=== PATIENT | male | born 1965 | race African-American/Black ===

== ENCOUNTER 2016-08-01 17:57 | Emergency (ER) | payer OTHER ==
[~2016-08-01] VITALS: Ht 160 cm; Wt 81.6 kg
[~2016-08-01 17:57] MED LIST: AUGMENTIN 875 M1 TAB PO; FLEXERIL10 MG PO; LISINOPRIL10 M1 PO; TRAMADOL50 MG PO; TYLENOL #4 3001 TAB PO
[2016-08-01 18:03] VITALS: BP 132/94
--- NOTE | 2016-08-01 19:12 | ED INFLUENZA/URI COMPLAINT ---
History of Present Illness General Chief Complaint: General Adult Stated Complaint: PT HAS BODY ACHES AND HOT AND COLD ? FLU Source: patient Exam Limitations: no limitations Vital Signs & Intake/Output Vital Signs & Intake/Output Vital Signs Date Time Temp Pulse Resp B/P Pulse O2 O2 Flow FiO2 Ox Delivery Rate 08/01 1803 99.8 92 18 132/94 98 Room Air Allergies Coded Allergies: aspirin (From Percodan) (Intermediate, RASH 08/01/16) oxycodone (From Percodan) (Intermediate, RASH 08/01/16) Reconcile Medications Ibuprofen (Advil) 200 MG CAPSULE 2 CAP PO PRN PAIN (Reported) Lisinopril 10 MG TABLET 1 TAB PO BID HIGH BLOOD PRESSURE (Reported) Triage Note: 51 YO MALE TO TRIAGE C/O PRODUCTIVE COUGH WITH YELLOW SPUTUM AND CILLS SINCE . STATES FEVERS ON/OFF. TEMP 99.2 IN TRIAGE. PT C/O SORE TROAT. Triage Nurses Notes Reviewed? yes HPI: 51-year-old male arrived to triage the counts include 234 beds at the [facility] for evaluation of body aches, fever and sore throat since . He reports he has been taking Tylenol and Motrin with no relief. He denies any chest pain, shortness of breath, lightheadedness, dizziness or palpitations. He denies any ear pain, nasal congestion, cough. He reports he does smoke but no other significant past medical history. He denies any recent illness or being around anybody that's been sick. Past History Travel History Traveled to [place] past 21 day No Medical History Any Pertinent Medical History? 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 No Review of Systems Review of Systems Constitutional: Reports: chills, fever, weakness. EENTM: Reports: throat pain. Respiratory: Denies: no symptoms. Cardiovascular: Denies: no symptoms. GI: Denies: no symptoms. Genitourinary: Denies: no symptoms. Musculoskeletal: Reports: muscle pain. Skin: Denies: no symptoms. Neurological/Psychological: Denies: no symptoms. Hematologic/Endocrine: Denies: no symptoms. Immunologic/Allergic: Denies: no symptoms. Physical Exam Physical Exam General Appearance: well developed/nourished, alert, awake, mild distress Head: atraumatic, normal appearance Eyes: Bilateral: normal appearance, PERRL, EOMI. Ears, Nose, Throat: pharyngeal erythema Neck: normal inspection, supple, full range of motion Respiratory: normal breath sounds, chest non-tender, no respiratory distress Cardiovascular: regular rate/rhythm Gastrointestinal: normal bowel sounds, soft, non-tender Back: normal inspection, normal range of motion Extremities: normal inspection, normal capillary refill, normal range of motion, no edema Neurologic/Psych: no motor/sensory deficits, awake, alert, oriented x 3, normal gait, normal mood/affect Skin: intact, normal color, warm/dry Core Measures Severe Sepsis Present: No Septic Shock Present: No Progress Differential Diagnosis: influenza, strep, viral syndrome Plan of Care: Orders Procedure Date/time Status RAPID VIRAL INFLUENZA A 08/01 1908 Complete THROAT CULTURE W/QUICK STREP 08/01 1804 Active Initial ED EKG: none Comments: Strep and influenza negative. Motrin helped with the body aches and he is feeling better he will be discharged home to follow up with his primary care provider this week. He will do treatment for his symptoms, Tylenol and/or Motrin, salt water gargles. Departure Departure Time of Disposition: 2046 Disposition: HOME OR SELF CARE Condition: Stable Clinical Impression Primary Impression: Pharyngitis Qualifiers: Pharyngitis/tonsillitis etiology: unspecified etiology Qualified Code: J02.9 - Acute pharyngitis, unspecified Secondary Impressions: Body aches Referrals: CHRISTI POSEY MD (PCP/Family) Additional Instructions: Tylenol and/or Motrin has needed for pain and fever. Salt water gargles as needed for sore throat. Please follow-up with Dr. Posey this week. Departure Forms: Customer Survey General Discharge Information
[2016-08-01] MEDS ORDERED: ADVIL200 M1 PO (20:11)
== END 2016-08-01 20:58 ==
LOC: ERH 17:57
DX: J02.9 Acute pharyngitis, unspecified (principal); R53.81 Other malaise; F17.210 Nicotine dependence, cigarettes, uncomplicated
CPT/HCPCS: 87804; 87804-59

== ENCOUNTER 2016-10-07 09:28 | Emergency (ER) | payer OTHER ==
[~2016-10-07] VITALS: Ht 160 cm; Wt 81.6 kg
[~2016-10-07 09:28] MED LIST changes: +ADVIL200 M1 PO
[2016-10-07 09:34] VITALS: BP 163/119
--- NOTE | 2016-10-07 09:39 | ED NECK/BACK PAIN COMPLAINT ---
History of Present Illness General Chief Complaint: Low Back Pain/Injury Stated Complaint: RT SHOULDER PAIN/RT HIP PAIN/BACK PAIN Source: patient, old records Exam Limitations: no limitations Vital Signs & Intake/Output Vital Signs & Intake/Output Vital Signs Date Time Temp Pulse Resp B/P B/P Pulse O2 O2 Flow FiO2 Mean Ox Delivery Rate 10/07 0934 96.7 94 18 163/119 100 Room Air Allergies Coded Allergies: aspirin (From Percodan) (Intermediate, RASH 08/01/16) oxycodone (From Percodan) (Intermediate, RASH 08/01/16) Reconcile Medications Cyclobenzaprine HCl 10 MG TABLET 1 TAB PO Q8P PAIN OR SPASM Ibuprofen (Advil) 200 MG CAPSULE 2 CAP PO PRN PAIN (Reported) Lisinopril 10 MG TABLET 1 TAB PO BID HIGH BLOOD PRESSURE (Reported) Tramadol HCl 50 MG TABLET 1 TAB PO Q6P PRN PAIN Triage Note: C/O R SHOULDER, R LOWER BACK AND R HIP PAIN, X 1 WEEK. OCCURRED WHILE USING A TOÑO AT WORK, STATES HE WAS SUPPOSED TO HAVE DISC SURGERY IN 2010 FOR INJURY TO SAME SHOULDER, BUT WAS UNABLE TO. PAIN IS WORSE ON INPSIRATION. Triage Nurses Notes Reviewed? yes HPI: Patient was at work using a poorly when it suddenly let go and he had some onset of pain to his right hip, his neck on the right side. The pain in his neck radiates to his right shoulder. Pain increases with movement. This occurred 1 week ago. Patient is currently on light duty but the pain is getting worse. Currently the pain is 10 out of 10. There is no weakness or numbness. The pain is exacerbated with movement and decreases when he stays still. There are no fevers or chills. The pain is aching throbbing burning and sharp in nature. Past History Travel History Traveled to [place] past 21 day No Medical History Any Pertinent Medical History? 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 No Review of Systems Review of Systems Constitutional: Reports: no symptoms. Ears, Nose, Throat, Mouth: Reports: no symptoms. Respiratory: Reports: no symptoms. Cardiovascular: Reports: no symptoms. Musculoskeletal: Reports: see HPI, back pain, neck pain. Neurological/Psychological: Reports: no symptoms. Physical Exam Physical Exam General Appearance: well developed/nourished, alert, awake, moderate distress Head: atraumatic, normal appearance Eyes: Bilateral: PERRL, EOMI. Ears, Nose, Throat, Mouth: hearing grossly normal, moist mucous membrane Neck: normal inspection, supple, full range of motion, muscle spasm, tender lateral Respiratory: normal breath sounds, chest non-tender, no respiratory distress, lungs clear Cardiovascular: regular rate/rhythm, normal peripheral pulses Back: muscle spasm Extremities: non-tender, normal range of motion Neurologic/Psych: no motor/sensory deficits, awake, alert, oriented x 3, normal gait, normal mood/affect Progress Differential Diagnosis: C spine injury, herniated disc, myofascial strain Plan of Care: muscle relants, pain control, occ med follow up Departure Departure Disposition: HOME OR SELF CARE Condition: Stable Clinical Impression Primary Impression: Back pain Secondary Impressions: Cervical radiculopathy Referrals: FORMAN CHRISTI FERNÁNDEZ (PCP/Family) Additional Instructions: FOLLOW UP WITH OCCUPATION MEDICINE TAKE MEDS NEEDED USE MOIST HEAT Departure Forms: Customer Survey General Discharge Information Prescriptions: Current Visit Scripts Tramadol HCl 1 TAB PO Q6P PRN PAIN #20 TAB Cyclobenzaprine HCl 1 TAB PO Q8P #20 TAB
[2016-10-07] MEDS ORDERED: CYCLOBENZAPRINE10 M1 PO (09:59)
[2016-10-07] MEDS ORDERED: TRAMADOL HCL50 M1 PO (09:59)
== END 2016-10-07 10:04 ==
LOC: ERH 09:28
DX: M54.12 Radiculopathy, cervical region (principal)

== ENCOUNTER 2016-11-19 13:05 | Emergency (ER) | payer OTHER ==
[~2016-11-19] VITALS: Ht 160 cm; Wt 81.6 kg
[~2016-11-19 13:05] MED LIST changes: +CYCLOBENZAPRINE10 M1 PO; +TRAMADOL HCL50 M1 PO
[2016-11-19 15:07] LABS: ABSOLUTE BASOPHIL COUNT 0.1 /CUMM (0.0-0.2); ABSOLUTE EOSINOPHIL COUNT 0.3 /CUMM (0.0-0.7); ABSOLUTE GRANULOCYTE CT 4.2 /CUMM (1.4-6.5); ABSOLUTE LYMPH COUNT 3.5 /CUMM (1.2-3.4); ABSOLUTE MONOCYTE COUNT 0.6 /CUMM (0.10-0.60); EOSINOPHIL % 3.5 % (0-5); GRANULOCYTE % 48.3 % (42.2-75.2); HEMATOCRIT 44.1 % (42-52); MEAN CORPUSCULAR HGB CONC 33.9 G/DL (33.0-37.0); MEAN CORPUSCULAR VOLUME 91.4 FL (80.0-94.0); MEAN PLATELET VOLUME 8.5 FL (7.4-10.4); PLATELET COUNT 243 /CUMM (130-400); RED BLOOD CELL CT 4.82 /CUMM (4.70-6.10); WHITE BLOOD CELL COUNT 8.8 /CUMM (4.8-10.8)
--- NOTE | 2016-11-19 15:56 | ED CARDIAC/CP/PALPITATIONS ---
History of Present Illness General Chief Complaint: General Adult Stated Complaint: HIGH BP Source: patient Exam Limitations: no limitations Vital Signs & Intake/Output Vital Signs & Intake/Output Vital Signs Date Time Temp Pulse Resp B/P B/P Pulse O2 O2 Flow FiO2 Mean Ox Delivery Rate 11/19 2036 98.7 82 16 138/90 97 Room Air 11/19 1836 98.7 80 15 135/92 98 Room Air Room Air 11/19 1550 Room Air Room Air 11/19 1550 98.0 85 15 146/92 98 Room Air Room Air 11/19 1308 96.6 106 16 136/92 97 Room Air Allergies Coded Allergies: aspirin (From Percodan) (Intermediate, RASH, GI UPSET 11/19/16) oxycodone (From Percodan) (Intermediate, RASH 08/01/16) Reconcile Medications Lisinopril 10 MG TABLET 1 TAB PO BID HIGH BLOOD PRESSURE (Reported) Lisinopril 10 MG TABLET 1 TAB PO DAILY BLOOD PRESSURE Meclizine HCl 25 MG TABLET 1 TAB PO TIDPRN PRN VERTIGO Scopolamine Hydrobromide (Transderm-Scop) 1.5MG/3DAY PATCH.TD.3 1 PAT TOP Q3D VERTIGO apply to the hairless area behind 1 ear at least 4 hours before effect is required; reapply every 3 days as needed Triage Note: 51 Y/O MALE C/O "TINGLING" IN L ARM, BACK PAIN, "MY FEET ARE HURTING" AND HYPERTENSION. STATES HE HAD SYMPTOMS YESTERDAY BUT DID NOT GET EVALUATED AT THAT TIME. TOOK B/P AT WORK TODAY AND IT WAS 180'S SYSTOLIC. STATES HE USED TO BE ON B/P MEDS BUT HE STOPPED DUE TO HEARING THAT SOME PEOPLE CAN HAVE LIP SWELLING WITH LISINOPRIL; STATES HIS DOCTOR STILL WANTS HIM TO BE ON MEDS BUT HE IS NOT CURRENTLY. PT DENIES C/P. PT STATES HE FEELS "REAL DIZZY IF I MOVE MY HEAD". B/P Triage Nurses Notes Reviewed? yes Onset: Abrupt Duration: intermittent Timing: recent history Quality/Severity: moderate Radiation: no radiation HPI: patient is a 51-year-old male with a past medical history of hypertension noncompliant with lisinopril who presents emergency room with concerns of a chronic history of dyspnea on exertion or patient is an every day smoker however patient presents with concerns of a 24-hour history of room spinning sensation made worse with head movements and body positioning. Patient feels nauseous during episodes. Patient also admits to a intermittent episodes of bright red blood after bowel movements. Patient denies any fever chills chest pain on pain jaw pain vomiting abdominal pain (ABILIO GRIDER) Past History Travel History Traveled to [place] past 21 day No Medical History Any Pertinent Medical History? 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 No (ABILIO GRIDER) Review of Systems Review of Systems Constitutional: Reports: see HPI. Denies: chills, fever. EENTM: Reports: no symptoms. Respiratory: Reports: see HPI, short of breath. Cardiovascular: Reports: see HPI. Denies: peripheral edema. GI: Reports: see HPI. Denies: abdominal pain. Genitourinary: Reports: no symptoms. Musculoskeletal: Reports: no symptoms. Skin: Reports: no symptoms. Neurological/Psychological: Reports: no symptoms. Hematologic/Endocrine: Reports: no symptoms. Immunologic/Allergic: Reports: no symptoms. All Other Systems: Reviewed and Negative (ABILIO GRIDER) Physical Exam Physical Exam General Appearance: well developed/nourished, no apparent distress, alert, awake Cardiovascular: regular rate/rhythm Rectal: normal exam, normal rectal tone, heme negative stool Comments: Well-developed well-nourished person in no acute distress HEENT: Normal EENT exam, extraocular motion intact, no nystagmus. Pupils equally round and reactive to light and accommodation. Nose is atraumatic. External auditory canal and Tympanic membranes clear. Pharynx normal. No swelling or edema. Neck: Supple, no lymphadenopathy, normal range of motion without pain or tenderness Back: Nontender, no CVA tenderness. Cardiovascular: Regular rate and rhythms no murmurs rubs or gallops, normal JVP Respiratory: Chest nontender. No respiratory distress.breath sounds clear to auscultation bilaterally Abdomen: Soft, nontender nondistended, no appreciable organomegaly. Normal bowel sounds. No ascites Extremity: No edema, no calf tenderness to palpation, normal and equal pulses. Neuro: Alert oriented x3, motor sensory normal, cranial nerves II through XII grossly intact. Modify Miller-Hallpike reproduced room spinning sensation Skin: No appreciable rash on exposed skin, skin is warm and dry. Psych: Mood and affect is normal, memory and judgment is normal. Core Measures ACS in differential dx? Yes Severe Sepsis Present: No Septic Shock Present: No (RENALDO DUFFY,ABILIO) Progress Differential Diagnosis: AMI, aortic dissection, atrial fibrillation, cholecystitis, CHF/pulm edema, costochondritis, hyperkalemia, hypovolemia, hyperthyroid, hyperventilation, intracranial hemorrhage, musculoskeletal pain, myocarditis, pancreatitis, pericarditis, pneumonia, pneumothorax, PSVT, pulmonary embolism, PUD/GERD, PVCs/PACs, respiratory failure, rib fracture, sepsis, unstable angina, V-fib/V-Tach, WPW syndrome Plan of Care: Orders Procedure Date/time Status Heart Healthy Diet 11/20 B Active TROPONIN LEVEL 11/19 1855 Complete EKG 11/19 1855 Active MISTAKE 11/19 1601 Active Add-on Test (ER Only) 11/19 1554 Active TROPONIN LEVEL 11/19 1458 Complete COMPREHENSIVE METABOLIC PANEL 11/19 1436 Complete CBC WITHOUT DIFFERENTIAL 11/19 1436 Complete EKG 11/19 1312 Active Laboratory Tests 11/19/16 1923: Troponin I < 0.01 11/19/16 1458: Anion Gap 12, Estimated GFR > 60, BUN/Creatinine Ratio 17.1, Glucose 89, Calcium 10.2, Total Bilirubin 0.5, AST 73 H, ALT 128 H, Alkaline Phosphatase 69, Troponin I < 0.01, Total Protein 8.5 H, Albumin 4.9, Globulin 3.6, Albumin/ Globulin Ratio 1.4, CBC w Diff NO MAN DIFF REQ, RBC 4.82, MCV 91.4, MCH 31.0, RDW 13.0, MPV 8.5, Gran % 48.3, Lymphocytes % 40.3, Monocytes % 6.9, Eosinophils % 3.5, Basophils % 1.0, Absolute Granulocytes 4.2, Absolute Lymphocytes 3.5 H, Absolute Monocytes 0.6, Absolute Eosinophils 0.3, Absolute Basophils 0.1, PUBS MCHC 33.9 Patient on initial examination was in no apparent distress resting comfortably at bedside. Patient due to history of present is has concerns of vertigo symptoms positional related Patient had negative orthostatics EKG and blood work initially was unremarkable Patient received second EKG showed a 1 PVC and which patient has been on telemetry and there was no notable persistent PVCs. Patient was ambulated and had no symptoms no dizziness and the vertigo has now ceased. Patient was strongly advised to follow up with director of career services and matrix worker for his presenting complaints. Patient's second cardiac enzyme was unremarkable. Upon discharge patient looks well no apparent distress and will comply with discharge instructions and had no questions. (RENALDO DUFFY,ABILIO) Diagnostic Imaging: Viewed by Me: Radiology Read. Radiology Impression: no acute abnormality, no fracture Initial ED EKG: SINUS RHYTHM NOTED AT 88 BPM Repeat EKG: changed (TIMES ONE pvc 76 BPM SINUS RHY) Comments: PATIENT: NOAH OLSEN PRESENT AGE: 51 PATIENT ACCOUNT NO: [id number] : 65 LOCATION: ER ORDERING PHYSICIAN: ABILIO DUFFY SERVICE DATE: 11/19/16 EXAM TYPE: CAT - CT HEAD WO IV CONTRAST EXAMINATION: CT HEAD WITHOUT CONTRAST CLINICAL INFORMATION: Dizziness. Headache. COMPARISON: None TECHNIQUE: Contiguous axial imaging was performed from the skull base to vertex without intravenous administration of contrast. DLP: 617.3 mGy-cm FINDINGS: There is no evidence of acute intracranial hemorrhage or territorial infarction. No abnormal mass effect or midline shift is seen. Scott to white matter differentiation is well preserved. No extra-axial fluid collections are identified. The ventricles are normal in size. There is no abnormal attenuation within the brain parenchyma. The osseous structures and soft tissues are normal. The mastoid air cells and visualized portions of the paranasal sinuses are well aerated. IMPRESSION: No acute intracranial pathology. DICTATED BY: JENNIFER YAN MD DATE/TIME DICTATED:11/19/161632 MERCHANDISING TEAM LEAD:PAYTON DATE/TIME TRANSCRIBED:11/19/16 PATIENT: NOAH OLSEN PRESENT AGE: 51 PATIENT ACCOUNT NO: [id number] : 65 LOCATION: [facility] ORDERING PHYSICIAN: ABILIO DUFFY SERVICE DATE: 11/19/16 EXAM TYPE: RAD - XRY-CHEST XRAY, PA AND LATERAL EXAMINATION: XR CHEST CLINICAL INFORMATION: Shortness of breath COMPARISON: Chest x-ray 07/27/2014. TECHNIQUE: 2 views of the chest were obtained. FINDINGS: No significant abnormality is noted involving the heart, lungs, mediastinum, bony thorax or soft tissues. IMPRESSION: Unremarkable examination. DICTATED BY: LIU ESPINO MD DATE/TIME DICTATED:11/19/16 (ABILIO GRIDER) Departure Departure Disposition: HOME OR SELF CARE Condition: Stable Clinical Impression Primary Impression: Positional vertigo Secondary Impressions: Dizziness, Hypertension, Rectal bleed Referrals: ZOLTAN FERNÁNDEZ,MANUEL KOROMA MD,LAMINE LYMAN MD,Leighton FORMAN MD,CHRISTI Louis (PCP/Family) Additional Instructions: As discussed begin the prescription of meclizine and scopolamine for your room spinning sensation. Begin a prescription of lisinopril for blood pressure. prescription is waiting a [facility] pharmacy. Tomorrow please follow up and establish a matrix worker Dr. Miller, ENT Dr. Gaitan and director of career services Dr. Lyman for your symptoms. If symptoms worsen return to emergency room please discontinue smoking Departure Forms: Customer Survey General Discharge Information Prescriptions: Current Visit Scripts Lisinopril 1 TAB PO DAILY #30 TAB Meclizine HCl 1 TAB PO TIDPRN PRN VERTIGO #20 TAB Scopolamine Hydrobromide (Transderm-Scop) 1 PAT TOP Q3D #4 PAT apply to the hairless area behind 1 ear at least 4 hours before effect is required; reapply every 3 days as needed (ABILIO GRIDER) PA/SERVICE CREW LEADER Co-Sign Statement Statement: ED Attending supervision documentation- [] I saw and evaluated the patient. I have also reviewed all the pertinent lab results and diagnostic results. I agree with the findings and the plan of care as documented in the PA's/SERVICE CREW LEADER's documentation. [X] I have reviewed the ED Record and agree with the PA's/SERVICE CREW LEADER's documentation. [] Additions or exceptions (if any) to the PAs/SERVICE CREW LEADER's note and plan are summarized below: [] (ELLIOT VELASQUEZ DO) Critical Care Note Critical Care Note Critical Care Time: non-applicable (ABILIO GRIDER)
--- NOTE | 2016-11-19 16:38 | RADIOLOGY REPORT ---
EXAMINATION: XR CHEST CLINICAL INFORMATION: Shortness of breath COMPARISON: Chest x-ray 07/27/2014. TECHNIQUE: 2 views of the chest were obtained. FINDINGS: No significant abnormality is noted involving the heart, lungs, mediastinum, bony thorax or soft tissues. IMPRESSION: Unremarkable examination.
--- NOTE | 2016-11-19 16:40 | CT SCAN REPORT ---
EXAMINATION: CT HEAD WITHOUT CONTRAST CLINICAL INFORMATION: Dizziness. Headache. COMPARISON: None TECHNIQUE: Contiguous axial imaging was performed from the skull base to vertex without intravenous administration of contrast. DLP: 617.3 mGy-cm FINDINGS: There is no evidence of acute intracranial hemorrhage or territorial infarction. No abnormal mass effect or midline shift is seen. Scott to white matter differentiation is well preserved. No extra-axial fluid collections are identified. The ventricles are normal in size. There is no abnormal attenuation within the brain parenchyma. The osseous structures and soft tissues are normal. The mastoid air cells and visualized portions of the paranasal sinuses are well aerated. IMPRESSION: No acute intracranial pathology.
[2016-11-19] MEDS ORDERED: LISINOPRIL10 M1 PO (20:25)
[2016-11-19] MEDS ORDERED: TRANSDERM-SCOP1 EACH TOP (20:25)
[2016-11-19] MEDS ORDERED: MECLIZINE HCL25 MG PO (20:25)
[2016-11-19 20:37] VITALS: BP 138/90
== END 2016-11-19 20:39 ==
LOC: ERH 13:05
PROVIDERS: Emergency Medicine
DX: R42 Dizziness and giddiness (principal); K62.5 Hemorrhage of anus and rectum; I10 Essential (primary) hypertension
CPT/HCPCS: 93005; 93010

== ENCOUNTER 2017-07-24 16:11 | Emergency (ER) | payer OTHER ==
[~2017-07-24] VITALS: Ht 160 cm; Wt 72.6 kg
[~2017-07-24 16:11] MED LIST changes: +IBUPROFEN600 M1 PO; +IBUPROFEN800 M1 PO; +MECLIZINE HCL25 MG PO; +NORCO 5-325 TA1 EACH PO; +ROBAXIN-750750 M1 PO; +TRANSDERM-SCOP1 EACH TOP
--- NOTE | 2017-07-24 18:59 | ED NECK/BACK PAIN COMPLAINT ---
History of Present Illness General Chief Complaint: Low Back Pain/Injury Stated Complaint: BACK PAIN Source: patient, family, old records Exam Limitations: no limitations Vital Signs & Intake/Output Vital Signs & Intake/Output Vital Signs Date Time Temp Pulse Resp B/P B/P Pulse O2 O2 Flow FiO2 Mean Ox Delivery Rate 07/24 1927 98.8 91 20 159/111 98 Room Air 07/24 1614 97.1 68 18 172/86 95 Room Air Allergies Coded Allergies: aspirin (From Percodan) (Intermediate, RASH, GI UPSET 11/19/16) oxycodone (From Percodan) (Intermediate, RASH 08/01/16) Reconcile Medications Cyclobenzaprine HCl 10 MG TABLET 1 TAB PO QPM BACK Cyclobenzaprine HCl 10 MG TABLET 1 TAB PO BID PRN SPASM DO NOT DRIVE WITH THIS MEDICATION Hydrocodone/Acetaminophen ([place] 5-325 Tablet) 5 MG-325 MG TABLET 1-2 TAB PO Q4-6 PRN PRN PAIN Ibuprofen 800 MG TABLET 1 TAB PO TID PRN PAIN Ibuprofen 600 MG TABLET 1 TAB PO Q6 PRN PAIN with food Lisinopril 10 MG TABLET 1 TAB PO BID HIGH BLOOD PRESSURE (Reported) Lisinopril 10 MG TABLET 1 TAB PO DAILY BLOOD PRESSURE Meclizine HCl 25 MG TABLET 1 TAB PO TIDPRN PRN VERTIGO Methocarbamol (Robaxin-750) 750 MG TABLET 1 TAB PO TID PRN PAIN Naproxen 500 MG TABLET 1 TAB PO BID BACK Oxycodone HCl/Acetaminophen (Oxycodone-Acetaminophen 5-325) 5 MG-325 MG TABLET 1 TAB PO DAILY PRN BACK Scopolamine Hydrobromide (Transderm-Scop) 1.5MG/3DAY PATCH.TD.3 1 PAT TOP Q3D VERTIGO apply to the hairless area behind 1 ear at least 4 hours before effect is required; reapply every 3 days as needed Triage Note: PT STATES THAT HE WAS SEEN HERE FOR LOW BACK PAIN 2 WEEKS AGO, WAS SENT HOME ON WAS TAKING NORCO, WHICH HE RAN OUT OF, HAS NOT BEEN TAKING THE MOTRIN OR ROBAXIN DUE TO IT BOTHERS HIS STOMACH , HAS AN APPOINTMENT ON 07/31 WITH [facility]OPEDIC. WAS TOLD TO RETURN TO ER IF PAIN WORSE Triage Nurses Notes Reviewed? yes HPI: 52M PMH chronic lower back pain, nephrolithiasis presents with acute on chronic lower back pain. Pain has been worsening for the past few months. He is having difficulty sleeping due to the bridgett. There are no new neurological symptoms, and he denies lower extremity weaknes/numbness/paresthesia, or incontinence or retention. No evidence of neurological deficit. Past History Travel History Traveled to [place] past 21 day No Medical History Any Pertinent Medical History? see below for history Neurological: NONE EENT: NONE Cardiovascular: hypertension Respiratory: NONE Gastrointestinal: NONE Hepatic: NONE Renal: NONE Musculoskeletal: disk herniation Psychiatric: NONE Endocrine: NONE Blood Disorders: NONE Cancer(s): NONE [employer]/Reproductive: NONE Surgical History Surgical History: hernia repair-inguinal, L CARPAL TUNNEL R/L INGUINAL HERNIA Psychosocial History What is your primary language Hebrew Tobacco Use: Never used ETOH Use: denies use Illicit Drug Use: denies illicit drug use Family History Hx Contributory? No Review of Systems Review of Systems Constitutional: Reports: no symptoms. Eyes: Reports: no symptoms. Ears, Nose, Throat, Mouth: Reports: no symptoms. Respiratory: Reports: no symptoms. Cardiovascular: Reports: no symptoms. Gastrointestinal/Abdominal: Reports: no symptoms. Musculoskeletal: Reports: no symptoms. Skin: Reports: no symptoms. Neurological/Psychological: Reports: no symptoms. All Other Systems: Reviewed and Negative Physical Exam Physical Exam General Appearance: well developed/nourished, mild distress Head: atraumatic Eyes: Bilateral: normal appearance. Ears, Nose, Throat, Mouth: hearing grossly normal Neck: normal inspection, supple, full range of motion Respiratory: normal breath sounds Cardiovascular: regular rate/rhythm Gastrointestinal: soft, non-tender Back: normal inspection Extremities: normal range of motion Straight Leg Raising: Right: Pain at ____ degrees. Left: Pain at ____ degrees. Sensory: Top of Foot: 2: L5R, L5L. Neurologic/Psych: no motor/sensory deficits, awake, alert, oriented x 3, normal mood/affect Skin: intact, normal color, warm/dry Core Measures CVA/TIA Diagnosis: No Progress Differential Diagnosis: AAA, aortic dissection, C spine injury, carotid dissection, cauda equina syn, herniated disc, myofascial strain, pyelo/UTI, sciatica, spinal cord inj, thoracic outlet syn, T/L spine injury, ureterolithiasis Plan of Care: Improved after medications. No evidence of cord compression or cauda equina. [facility]. Departure Departure Disposition: HOME OR SELF CARE Condition: Stable Clinical Impression Primary Impression: Sciatica Referrals: Posey MD,[place] (PCP/Family) Additional Instructions: Follow up with Dr. Araiza. Try to keep active and moving around. Prolonged lying will worsen your pain. Pain medications may make you sleepy, so don't drive or operate machinery. Use warm compresses for your back. Departure Forms: Customer Survey General Discharge Information Prescriptions: Current Visit Scripts Naproxen 1 TAB PO BID #30 TAB Cyclobenzaprine HCl 1 TAB PO QPM #30 TAB Oxycodone HCl/Acetaminophen (Oxycodone-Acetaminophen 5-325) 1 TAB PO DAILY PRN BACK #8 TAB
[2017-07-24 19:28] VITALS: BP 159/111
[2017-07-24] MEDS ORDERED: OXYCODONE-ACET1 EACH PO (20:11)
[2017-07-24] MEDS ORDERED: NAPROXEN500 M2 PO (20:11)
[2017-07-24] MEDS ORDERED: CYCLOBENZAPRINE10 M1 PO (20:11)
[2017-07-29] MEDS ORDERED: PERCOCET 5-3251 EACH PO (12:21)
== END 2017-07-24 20:26 ==
LOC: ERH 16:11
DX: M54.40 Lumbago with sciatica, unspecified side (principal)
CPT/HCPCS: 96372; J1885

== ENCOUNTER 2018-02-25 13:12 | Emergency (ER) | payer OTHER ==
[~2018-02-25] VITALS: Ht 160 cm; Wt 81.6 kg
[~2018-02-25 13:12] MED LIST changes: +NAPROXEN500 M2 PO; +OXYCODONE-ACET1 EACH PO; +PERCOCET 5-3251 EACH PO
[2018-02-25 15:58] LABS: ABSOLUTE EOSINOPHIL COUNT 0.3 /CUMM (0.0-0.7); ABSOLUTE LYMPH COUNT 3.5 /CUMM (1.2-3.4); BASOPHIL % 0.3 % (0.0-2.0); EOSINOPHIL % 3.5 % (0-5); HEMATOCRIT 45.9 % (42-52); MEAN CORPUSCULAR HGB CONC 33.7 G/DL (33.0-37.0); MEAN PLATELET VOLUME 8.4 FL (7.4-10.4); PLATELET COUNT 252 /CUMM (130-400); RBC DISTRIBUTION WIDTH 13.1 % (11.5-14.5); RED BLOOD CELL CT 5.02 /CUMM (4.70-6.10); WHITE BLOOD CELL COUNT 9.2 /CUMM (4.8-10.8)
[2018-02-25 16:00] LABS: ABSOLUTE GRANULOCYTE CT 4.7 /CUMM (1.4-6.5); ABSOLUTE MONOCYTE COUNT 0.7 /CUMM (0.10-0.60); MEAN CORPUSCULAR HGB 30.8 PG (27.0-31.0); MEAN CORPUSCULAR VOLUME 91.4 FL (80.0-94.0)
[2018-02-25 16:18] VITALS: BP 143/96
--- NOTE | 2018-02-25 17:17 | CT SCAN REPORT ---
EXAMINATION: CT ABDOMEN AND PELVIS WITHOUT CONTRAST CLINICAL INFORMATION: Lower back pain, radiating down legs. History of kidney stones. COMPARISON: CT of the abdomen and pelvis done on 07/12/2017. TECHNIQUE: Multidetector volumetric imaging was performed from the superior aspect of the liver through the pubic symphysis. Sagittal and coronal reformatted images were obtained on the technologist's workstation. DLP: 261.14 mGy-cm FINDINGS: LUNG BASES: The visualized lung bases are unremarkable. LIVER, GALLBLADDER, AND BILIARY TREE: 2 subcentimeter hepatic hypodensities are noted one each within the right and left lobe of the liver, unchanged since 07/12/2017, too small for accurate characterization, may represent hepatic cysts. The gallbladder is unremarkable with no evidence of radiopaque gallstones, gallbladder wall thickening, or obvious pericholecystic inflammatory changes. PANCREAS: Unremarkable. SPLEEN: Unremarkable. ADRENAL GLANDS: Unremarkable. KIDNEYS AND URETERS: The kidneys are normal in size, shape, and attenuation. No hydronephrosis, or hydroureter seen. No perinephric stranding. There is a 0.5 cm maximum dimension stable nonobstructing calculus identified within the inferior calyx of the left kidney. Both ureters are decompressed. BLADDER: Suboptimally distended. GASTROINTESTINAL TRACT: Colonic diverticulosis related changes are noted within the transverse colon and minimally within the sigmoid colon without any CT features of superimposed acute diverticulitis. The appendix is visualized within the right deep hemipelvis and is unremarkable. The small bowel loops are decompressed. The stomach is decompressed. ABDOMINAL WALL: No significant hernia is appreciated. LYMPH NODES: Normal. VASCULAR: Significant atherosclerotic disease is noted within the aorta and is branches without aneurysm formation, unchanged. ABDOMINAL WALL: Postsurgical changes of lower anterior abdominal, pelvic wall repair is noted, unchanged. PELVIC VISCERA: There is no pelvic mass present. There is no free fluid and/or free air present. OSSEOUS STRUCTURES: No suspicious lytic or sclerotic abnormalities. IMPRESSION: 1. Stable 0.5 cm nonobstructing left renal calculus. 2. 2 stable subcentimeter hepatic hypodensities are noted, unchanged since 07/12/2017. 3. No acute intra-abdominal and/or intrapelvic pathology.
[2018-02-25] MEDS ORDERED: MEDROL4 M2 PO (17:36)
[2018-02-25] MEDS ORDERED: ROBAXIN-750750 M1 PO (17:36)
[2018-02-25] MEDS ORDERED: TRAMADOL HCL50 M1 PO (17:36)
--- NOTE | 2018-02-25 17:37 | ED NECK/BACK PAIN COMPLAINT ---
History of Present Illness General Chief Complaint: Neck/Upper Back Pain/Injury Stated Complaint: SEVER BACK AND NECK PAIN Source: patient Exam Limitations: no limitations Vital Signs & Intake/Output Vital Signs & Intake/Output Vital Signs Date Time Temp Pulse Resp B/P B/P Pulse O2 O2 Flow FiO2 Mean Ox Delivery Rate 02/25 1618 97.6 76 18 143/96 99 Room Air 02/25 1346 83 22 144/96 Room Air Allergies Coded Allergies: aspirin (From Percodan) (Intermediate, RASH, GI UPSET 07/29/17) oxycodone (From Percodan) (Intermediate, RASH 07/29/17) Reconcile Medications Cyclobenzaprine HCl 10 MG TABLET 1 TAB PO QPM BACK Cyclobenzaprine HCl 10 MG TABLET 1 TAB PO BID PRN SPASM DO NOT DRIVE WITH THIS MEDICATION Hydrocodone/Acetaminophen ([place] 5-325 Tablet) 5 MG-325 MG TABLET 1-2 TAB PO Q4-6 PRN PRN PAIN Ibuprofen 800 MG TABLET 1 TAB PO TID PRN PAIN Ibuprofen 600 MG TABLET 1 TAB PO Q6 PRN PAIN with food Lisinopril 10 MG TABLET 1 TAB PO BID HIGH BLOOD PRESSURE (Reported) Lisinopril 10 MG TABLET 1 TAB PO DAILY BLOOD PRESSURE Meclizine HCl 25 MG TABLET 1 TAB PO TIDPRN PRN VERTIGO Methocarbamol (Robaxin-750) 750 MG TABLET 1 TAB PO TID PRN PAIN Methocarbamol (Robaxin-750) 750 MG TABLET 1 TAB PO TID PRN pain Methylprednisolone. (Medrol) 4 MG TAB.DS.PK 1 DP PO AD back pain 6 on day 1 then reduce by one tablet daily until gone Naproxen 500 MG TABLET 1 TAB PO BID BACK Oxycodone HCl/Acetaminophen (Oxycodone-Acetaminophen 5-325) 5 MG-325 MG TABLET 1 TAB PO DAILY PRN BACK Oxycodone HCl/Acetaminophen (Percocet 5-325 MG Tablet) 5 MG-325 MG TABLET 1 TAB PO BID back pain Scopolamine Hydrobromide (Transderm-Scop) 1.5MG/3DAY PATCH.TD.3 1 PAT TOP Q3D VERTIGO apply to the hairless area behind 1 ear at least 4 hours before effect is required; reapply every 3 days as needed Tramadol HCl 50 MG TABLET 1 TAB PO Q6P PRN pain Triage Note: C/O WORSENING BACK PAIN WITH INCONTINENCE SINCE YESTERDAY, ALSO C/O BILATERAL LEG NUMBNESS. SENT BY [employer]. Triage Nurses Notes Reviewed? yes Onset: Abrupt Duration: day(s): (2), constant, continues in ED, getting worse Timing: recent history Quality/Severity: moderate, sharpness Location: lumbar spine, paraspinous muscles Radiation: buttocks, upper legs Method of Injury: unknown Loss of Consciousness: no loss of consciousness Modifying Factors: movement HPI: 53-year-old male history of chronic back pain and hypertension presents for evaluation of worsening pain in his lower back. Patient reports symptoms started about 2 days ago and getting worse. The pain is located in both sides OF THE low back AND radiates down to the bilateral buttocks and bilateral upper legs. No numbness or tingling. NUMBNESS OR TINGLING. Patient reports he has had similar symptoms in the past. He notes that several weeks ago he has had some dribbling urine that occurs after he urinates. This is still ongoing today. No bowel dysfunction. It only happens after he urinates not randomly. He denies any fever or dysuria history of cancer abdominal pain hematuria fever IV drug use or any other associated symptoms. He has not taken any medicine for his pain. He reports a history of kidney stones and feels like this may be similar. He has taken tramadol in the past with good effect. (Dillan Gaston) Past History Travel History Traveled to [place] past 21 day No Medical History Any Pertinent Medical History? see below for history Neurological: NONE EENT: NONE Cardiovascular: hypertension Respiratory: NONE Gastrointestinal: NONE Hepatic: NONE Renal: NONE Musculoskeletal: disk herniation Psychiatric: NONE Endocrine: NONE Blood Disorders: NONE Cancer(s): NONE [employer]/Reproductive: NONE Surgical History Surgical History: hernia repair-inguinal, L CARPAL TUNNEL R/L INGUINAL HERNIA Psychosocial History What is your primary language Turkmen Tobacco Use: Current Daily Use Daily Tobacco Use Amount/Type: =< 4 Cigarettes daily ETOH Use: denies use Family History Hx Contributory? No (Dillan Gaston) Review of Systems Review of Systems Constitutional: Reports: no symptoms. Eyes: Reports: no symptoms. Ears, Nose, Throat, Mouth: Reports: no symptoms. Respiratory: Reports: no symptoms. Cardiovascular: Reports: no symptoms. Gastrointestinal/Abdominal: Reports: no symptoms. Musculoskeletal: Reports: see HPI, back pain. Skin: Reports: no symptoms. Neurological/Psychological: Reports: no symptoms. All Other Systems: Reviewed and Negative (Dillan Gaston) Physical Exam Physical Exam General Appearance: well developed/nourished, no apparent distress, alert, awake Head: atraumatic, normal appearance Eyes: Bilateral: normal appearance, PERRL, EOMI. Ears, Nose, Throat, Mouth: moist mucous membrane Neck: normal inspection, supple, full range of motion Respiratory: normal breath sounds, chest non-tender, no respiratory distress, lungs clear Cardiovascular: regular rate/rhythm, normal peripheral pulses Peripheral Pulses: 2+ radial (R), 2+ radial (L) Gastrointestinal: normal bowel sounds, soft, non-tender, no organomegaly Genital/Rectal: normal rectal exam, NORMAL RECTAL TONE, HEME-NEGATIVE STOOL, NO PERIANAL NUMBNESS Back: normal inspection, decreased range of motion, LUMBAR SPINE AND PARASPINAL MUSCLES TENDER TO PALPATION BILATERALLY NO BRUISING SWELLING AND ABRASIONS NO STEP-OFFS OR DEFORMITIES Extremities: non-tender, normal range of motion, straight leg raised (POSITIVE BILATERALLY) Straight Leg Raising: Right: Pain at ____ degrees (30). Left: Pain at ____ degrees (30). Sensory: Medial Le: L4R, L4L. Top of Foot: 2: L5R, L5L. Sole of Foot: 2: SIR, DARREN. Motor: Deficit L4 Right: No Deficit L4 Left: No Deficit L5 Right: No Deficit L5 Left: No Deficit S1 Right: No Deficit S1 Right: No DTR: Deficit L4 Left: No Deficit L4 Right: No Deficit S1 Left: No Deficit S1 Right: No Patellar: 2: L4 Right, L4 Left. Neurologic/Psych: no motor/sensory deficits, awake, alert, oriented x 3, normal gait, normal mood/affect Skin: intact, normal color, warm/dry Core Measures CVA/TIA Diagnosis: No (Dillan Gaston) Progress Differential Diagnosis: cauda equina syn, herniated disc, myofascial strain, sciatica, spinal cord inj, T/L spine injury, ureterolithiasis Plan of Care: Orders Procedure Date/time Status URINALYSIS 02/25 1506 Complete COMPREHENSIVE METABOLIC PANEL 02/25 150 Complete CBC WITHOUT DIFFERENTIAL 02/25 150 Complete Laboratory Tests 02/25/18 1540: Anion Gap 9, Estimated GFR > 60, BUN/Creatinine Ratio 17.8, Glucose 86, Calcium 10.6 H, Total Bilirubin 0.6, AST 68 H, ALT 115 H, Alkaline Phosphatase 74, Total Protein 8.6 H, Albumin 4.9, Globulin 3.7, Albumin/Globulin Ratio 1.3, CBC w Diff NO MAN DIFF REQ, RBC 5.02, MCV 91.4, MCH 30.8, MCHC 33.7, RDW 13.1, MPV 8.4, Gran % 51.0, Lymphocytes % 37.7, Monocytes % 7.5, Eosinophils % 3.5, Basophils % 0.3, Absolute Granulocytes 4.7, Absolute Lymphocytes 3.5 H, Absolute Monocytes 0.7 H, Absolute Eosinophils 0.3, Absolute Basophils 0.0 02/25/18 1525: Urine Color YEL, Urine Clarity HAZY H, Urine pH 6.0, Ur Specific [place] >= 1.030, Urine Protein 30 H, Urine Ketones TRACE H, Urine Nitrite NEG, Urine Bilirubin NEG@ICTO, Urine Urobilinogen 1.0, Ur Leukocyte Esterase NEG, Ur Microscopic SEDIMENT EXAMINED, Urine RBC RARE, Ur Epithelial Cells RARE, Hyaline Casts RARE H, Urine Mucus MANY H, Urine Hemoglobin NEG, Urine Glucose NEG Patient is here for evaluation of low back pain. He has had similar symptoms in the past. There is no trauma or triggering event. He reports some dribbling urine after urinating that has been going on for several weeks does not seem to be worsened by this back pain. He denies urinary incontinence otherwise no bowel dysfunction. He has good rectal tone no saddle paresthesias. He has had back pain in the past that is very similar to today. He also has a history of kidney stones and he says is similar. Labs CT scan of the pelvis ordered patient medicated with Solu-Medrol and IV Tylenol. Patient is feeling better after medications. His lab work is unremarkable other than a mild transaminitis. CT scan shows: Stable 0.5 cm nonobstructing left renal calculus. 2. 2 stable subcentimeter hepatic hypodensities are noted, unchanged since 07/12/2017. 3. No acute intra-abdominal and/or intrapelvic pathology. Reviewed results with patient. He is feeling better. He'll be given a prescription for Robaxin tramadol and Medrol Dosepak. Follow-up with back specialist. Discussed return precautions in detail. Patient agrees the plan (Dillan Gaston) Departure Departure Disposition: HOME OR SELF CARE Condition: Stable Clinical Impression Primary Impression: Low back pain Qualifiers: Chronicity: acute Back pain laterality: bilateral Sciatica presence : with sciatica Sciatica laterality: bilateral sciatica Qualified Codes: M54.42 - Lumbago with sciatica, left side; M54.41 - Lumbago with sciatica, right side Referrals: Jose G FERNÁNDEZ,Noah Posey MD,[place] (PCP/Family) Additional Instructions: Rest, avoid heavy lifting bending or excessive physical activity. Take Medrol Dosepak as directed for the full course. Tylenol ibuprofen as needed for pain and Robaxin as a muscle relaxer that can be used every 8 hours for pain. Tramadol for severe pain only. Follow-up with Dr. Araiza on Wednesday as scheduled. Monitor your symptoms return with any concerns. Departure Forms: Customer Survey General Discharge Information Prescriptions: Current Visit Scripts Methylprednisolone. (Medrol) 1 DP PO AD #1 DP 6 on day 1 then reduce by one tablet daily until gone Tramadol HCl 1 TAB PO Q6P PRN pain #10 TAB Methocarbamol (Robaxin-750) 1 TAB PO TID PRN pain #30 TAB (Dillan Gaston) PA/NEEDLE LEADER Co-Sign Statement Statement: ED Attending supervision documentation- I saw and evaluated the patient. I have also reviewed all the pertinent lab results and diagnostic results. I agree with the findings and the plan of care as documented in the PA's/NEEDLE LEADER's documentation. x I have reviewed the ED Record and agree with the PA's/NEEDLE LEADER's documentation. [] Additions or exceptions (if any) to the PAs/NEEDLE LEADER's note and plan are summarized below: [] (Rick FERNÁNDEZ,Chase)
== END 2018-02-25 18:08 ==
LOC: ERH 13:12
PROVIDERS: Physician Assistant Medical
DX: M54.5 Low back pain (principal); R39.9 Unspecified symptoms and signs involving the genitourinary system; I10 Essential (primary) hypertension; F17.210 Nicotine dependence, cigarettes, uncomplicated
CPT/HCPCS: 74176; 81001; 96374; 96375; J0131; J2930